=== PATIENT | male | born 1960 | race Caucasian/White ===

== ENCOUNTER 2017-03-30 12:46 | Emergency (ER) | payer OTHER, MEDICAID ==
[~2017-03-30] VITALS: Ht 188 cm; Wt 148.0 kg
[2017-03-30 12:51] VITALS: BP 176/98; PULSE 93; RESP 16; TEMP 98; O2SAT 97
[2017-03-30] MEDS ORDERED: CYCL10TA PO (13:08)
[2017-03-30] MEDS ORDERED: KETOROLAC TROMETHAMINE 60 MG/2 ML (IM) VIAL IM ONE (13:30)
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
[2017-03-30 14:43] VITALS: RESP 16
[2017-03-30] MEDS ORDERED: oxyCODONE/ACETAMINOPHEN 10 MG/325 MG TAB PO ONE (15:00)
[2017-03-30] MEDS ORDERED: IBUP1TAB7 PO (15:00)
[2017-03-30] MEDS ORDERED: OXYC1TAB36 PO (15:00)
== END 2017-03-30 15:19 | disposition home or self-care (01) ==
LOC: PHEFT 12:46
DX: S22.42XA Multiple fractures of ribs, left side, initial encounter for closed fracture (principal); S76.302A Unspecified injury of muscle, fascia and tendon of the posterior muscle group at thigh level, left thigh, initial encounter; V89.2XXA Person injured in unspecified motor-vehicle accident, traffic, initial encounter
CPT/HCPCS: 71101; 94150; 96372; 99285; J1885

== ENCOUNTER 2017-05-07 15:45 | Emergency (ER) | payer MEDICAID ==
[~2017-05-07] VITALS: Ht 188 cm; Wt 148.0 kg
[~2017-05-07 15:45] MED LIST: CYCL10TA PO; IBUP1TAB7 PO; OXYC1TAB36 PO
[2017-05-07 15:49] VITALS: BP 172/97; PULSE 94; RESP 16; TEMP 98.3; O2SAT 96
[2017-05-07] MEDS ORDERED: DIAZ10TA PO (16:58)
[2017-05-07] MEDS ORDERED: LEVO150T7 PO (16:58)
[2017-05-07] MEDS ORDERED: PRIL20TA2 PO (16:58)
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
== END 2017-05-07 18:23 | disposition home or self-care (01) ==
LOC: PHEFT 15:45
DX: S89.92XD Unspecified injury of left lower leg, subsequent encounter (principal); M25.462 Effusion, left knee; J44.9 Chronic obstructive pulmonary disease, unspecified; F17.210 Nicotine dependence, cigarettes, uncomplicated; V29.9XXD Motorcycle rider (driver) (passenger) injured in unspecified traffic accident, subsequent encounter
CPT/HCPCS: 73564; 99283

== ENCOUNTER 2017-06-02 18:05 | Emergency (ER) | payer MEDICAID ==
[~2017-06-02] VITALS: Ht 188 cm; Wt 160.0 kg
[~2017-06-02 18:05] MED LIST changes: -CYCL10TA PO; +DIAZ10TA PO; -IBUP1TAB7 PO; +LEVO150T7 PO; +PRIL20TA2 PO
[2017-06-02 18:09] VITALS: BP 146/78; PULSE 85; RESP 20; TEMP 98.6; O2SAT 96
[2017-06-02] MEDS ORDERED: SODIUM CHLORIDE 0.9% FLUSH 10 ML FLUSH IVF PRN (20:15)
[2017-06-02 20:30] VITALS: BP 148/88; PULSE 88; RESP 18; TEMP 98.7; O2SAT 97
[2017-06-02 20:34] VITALS: O2SAT 97
[2017-06-02 20:35] LABS: AUTOMATED NEUTROPHIL # 3.4 TH/MM3 (1.8-7.7); BASOPHIL # 0.1 TH/MM3 (0-0.2); BASOPHIL % 1.1 % (0.0-2.0); EOSINOPHIL # 0.3 TH/MM3 (0-0.4); EOSINOPHIL % 4.1 % (0.0-4.0); HEMATOCRIT 42.9 % (39.0-51.0); LYMPH % 39.8 % (9.0-44.0); LYMPHOCYTE # 2.8 TH/MM3 (1.0-4.8); MEAN CELL VOLUME 91.7 FL (80.0-100.0); MEAN CORPUSCULAR HGB CONC 32.7 % (32.0-36.0); MEAN PLATELET VOLUME 7.9 FL (7.0-11.0); MONO % 5.7 % (0.0-8.0); MONOCYTE # 0.4 TH/MM3 (0-0.9); NEUT % 49.3 % (16.0-70.0); PLATELET COUNT 242 TH/MM3 (150-450); RED BLOOD COUNT 4.67 MIL/MM3 (4.50-5.90); RED CELL DISTRIBUTION WIDTH 14.6 % (11.6-17.2)
[2017-06-02 20:42] LABS: CHLORIDE 102 MEQ/L (98-107); SODIUM (NA) 138 MEQ/L (136-145)
[2017-06-02 20:45] LABS: CALCIUM 8.5 MG/DL (8.5-10.1)
[2017-06-02 20:46] LABS: ALBUMIN 3.4 GM/DL (3.4-5.0); BICARBONATE 30.7 MEQ/L (21.0-32.0); BLOOD UREA NITROGEN 11 MG/DL (7-18); GLUCOSE,RANDOM 81 MG/DL (74-106)
--- NOTE | 2017-06-02 20:46 | RADRPT ---
EXAM DATE/TIME: 06/02/2017 20:24 [facility] COMPARISON: No previous studies available for comparison. INDICATIONS : Open wound to left great toe. Patient is diabetic. MEDICAL HISTORY : Diabetes mellitus type II. SURGICAL HISTORY : None. ENCOUNTER: Initial ACUITY: 1 week PAIN SCORE: 6/10 LOCATION: Left great toe. FINDINGS: Three view examination of the left foot demonstrates no dislocation or fracture. Soft tissue defect a nd swelling involving the great toe. No cortical destruction or lucency. The tarsal bones appear int act. The interphalangeal and metatarsophalangeal joints are intact. The calcaneus is intact. Bony mineralization is normal. CONCLUSION: 1. Ulceration involving the great toe. No radiographic evidence to suggest osteomyelitis. Reuben Huang Jr., MD on June 02, 2017 at 20:42 Board Certified Radiologist. This report was verified electronically.
[2017-06-02 20:49] LABS: ALT (GPT) 36 U/L (12-78); AST (GOT) 37 U/L (15-37); GLOMERULAR FILTRATION RATE 88 ML/MIN (>89)
[2017-06-02 20:51] LABS: TOTAL BILIRUBIN ADULT 0.3 MG/DL (0.2-1.0)
[2017-06-02 20:52] LABS: ALKALINE PHOSPHATASE 85 U/L (45-117)
[2017-06-02 21:30] VITALS: BP 145/79; PULSE 84; RESP 18; TEMP 98.5; O2SAT 99
[2017-06-02] MEDS ORDERED: oxyCODONE/ACETAMINOPHEN 5 MG/325 MG TAB PO ONE (22:15)
[2017-06-02] MEDS ORDERED: BACT800T5 PO (22:28)
--- NOTE | 2017-06-02 22:28 | PD ---
HPI Chief Complaint: Skin Problem Time Seen by Provider: 19:54 Travel History International Travel<30 days: No Contact w/Intl Traveler<30days: No Traveled to known affect area: No History of Present Illness HPI Patient is a 56-year-old male with a history of diabetes currently diet- controlled presents emergency department for evaluation of left great toe infection. He states it first noticed about a week ago is been gradually worsening, he's noticed a foul order from the wound, he is also noticed some foot swelling it's been progressive over the past week. No fevers no nausea no vomiting otherwise feels well. States he has a history of neuropathy, his symptoms are moderate, gradually worsening, context as above, associated signs symptoms as above. PFSH Past Medical History Hx Anticoagulant Therapy: No Anxiety: Yes Cardiovascular Problems: Yes (ANGINA) Chest Pain: Yes COPD: Yes Diabetes: Yes (TYPE 2 ) Patient Takes Glucophage: No GERD: Yes Thyroid Disease: Yes Tetanus Vaccination: < 5 Years Influenza Vaccination: No Past Surgical History Abdominal Surgery: Yes (umbilical hernia) Appendectomy: Yes Social History Alcohol Use: Yes (rare) Tobacco Use: Yes (1 ppd) Substance Use: Yes (OCC. MARIJUANA) Allergies-Medications (Allergen,Severity, Reaction): Uncoded Allergies: STEROIDS (Allergy, Severe, 03/30/17) Reported Meds & Prescriptions Reported Meds & Active Scripts Active Bactrim DS (Sulfamethoxazole-Trimethoprim) 800-160 Mg Tab 1 Tab PO BID 10 Days Oxycodone-Acetaminophen 10-325 mg Tab 1 Tab PO Q6H PRN Reported Diazepam 10 Mg Tab 10 Mg PO BID PRN Levothyroxine (Levothyroxine Sodium) 150 Mcg Tab 150 Mcg PO DAILY Prilosec (Omeprazole Magnesium) 20 Mg Tab Unknown Dose PO DIRECTED Review of Systems Except as stated in HPI: all other systems reviewed are Neg Physical Exam Narrative GENERAL: Well-developed, morbidly obese patient in no obvious distress, quite pleasant. SKIN: Focused skin assessment warm/dry. HEAD: Atraumatic. Normocephalic. EYES: Pupils equal and round. No scleral icterus. No injection or drainage. ENT: No nasal bleeding or discharge. Mucous membranes pink and moist. NECK: Trachea midline. No JVD. CARDIOVASCULAR: Regular rate and rhythm. No murmur appreciated. RESPIRATORY: No accessory muscle use. Clear to auscultation. Breath sounds equal bilaterally. GASTROINTESTINAL: Abdomen soft, non-tender, nondistended. Hepatic and splenic margins not palpable. MUSCULOSKELETAL: No obvious deformities. No clubbing. No cyanosis. No edema. There is ulcer without discharge some foul smell and a large blister that has eroded the plantar surface of his left great toe. There is also some edema and swelling of the foot, is euthermic to touch compared to his other foot. Cap refill is brisk. NEUROLOGICAL: Awake and alert. No obvious cranial nerve deficits. Motor grossly within normal limits. Normal speech. PSYCHIATRIC: Appropriate mood and affect; insight and judgment normal. Data Data Last Documented VS Vital Signs Date Time Temp Pulse Resp B/P (MAP) Pulse Ox O2 Delivery O2 Flow Rate FiO2 06/02/17 22:49 06/02/17 21:30 98.5 84 18 99 Room Air Orders Orders Bedside Glucose [id number].[email or web address] (06/02/17 20:06) Complete Blood Count With Diff (06/02/17 20:15) Comprehensive Metabolic Panel (06/02/17 20:15) Westergren Sedimentation Rate (06/02/17 20:15) C-Reactive Protein (Crp) (06/02/17 20:15) Ecg Monitoring (06/02/17 20:15) Iv Access Insert/Monitor (06/02/17 20:15) Oximetry (06/02/17 20:15) Sodium Chloride 0.9% Flush (Ns Flush) (06/02/17 20:15) Foot, Complete ([id number]) (06/02/17 ) Oxycodone-Acetamin 5-325 Mg (Percocet (06/02/17 22:15) Labs Laboratory Tests Test 06/02/17 20:23 White Blood Count 7.0 TH/MM3 Red Blood Count 4.67 MIL/MM3 Hemoglobin 14.0 GM/DL Hematocrit 42.9 % Mean Corpuscular Volume 91.7 FL Mean Corpuscular Hemoglobin 30.0 PG Mean Corpuscular Hemoglobin Concent 32.7 % Red Cell Distribution Width 14.6 % Platelet Count 242 TH/MM3 Mean Platelet Volume 7.9 FL Neutrophils (%) (Auto) 49.3 % Lymphocytes (%) (Auto) 39.8 % Monocytes (%) (Auto) 5.7 % Eosinophils (%) (Auto) 4.1 % Basophils (%) (Auto) 1.1 % Neutrophils # (Auto) 3.4 TH/MM3 Lymphocytes # (Auto) 2.8 TH/MM3 Monocytes # (Auto) 0.4 TH/MM3 Eosinophils # (Auto) 0.3 TH/MM3 Basophils # (Auto) 0.1 TH/MM3 CBC Comment DIFF FINAL Differential Comment Erythrocyte Sedimentation Rate 18 mm/hr Blood Urea Nitrogen 11 MG/DL Creatinine 0.90 MG/DL Random Glucose 81 MG/DL Total Protein 8.0 GM/DL Albumin 3.4 GM/DL Calcium Level 8.5 MG/DL Alkaline Phosphatase 85 U/L Aspartate Amino Transf (AST/SGOT) 37 U/L Alanine Aminotransferase (ALT/SGPT) 36 U/L Total Bilirubin 0.3 MG/DL Sodium Level 138 MEQ/L Potassium Level 4.2 MEQ/L Chloride Level 102 MEQ/L Carbon Dioxide Level 30.7 MEQ/L Anion Gap 5 MEQ/L Estimat Glomerular Filtration Rate 88 ML/MIN C-Reactive Protein 0.79 MG/DL MDM Medical Decision Making Medical Screen Exam Complete: Yes Emergency Medical Condition: Yes Differential Diagnosis Cellulitis, osteomyelitis is possible, sepsis possible but unlikely. Narrative Course Patient roomed in emergency department, while awaiting results of ESR and CRP the patient states he would like to go home and be started on antibiotics. I discussed with him the possibility of osteomyelitis and if it is osteo-myelitis he could become sick to the point of needing hospitalization or even intubation could theoretically result in or disability. Also discussed with him more likely scenario that he may develop infection to the point where he may need amputation of his toe foot or leg. He verbalized understanding and agreement still would like to be started on antibiotics and discharge. He was referred to wound care clinic as well as podiatry. Will be started on antibiotics. Discussed he is welcome to return to the emergency department anytime for further workup. He did sign formal AMA paper, he verbalized understanding and agreement to the risks as discussed above and therefore can make his own decision regarding leaving AGAINST MEDICAL ADVICE. Diagnosis Primary Impression: Toe infection Referrals: Chava Chapman DPM Additional Instructions: Call your regular physician or the [facility] tomorrow for an appointment. Med/Other Pt SpecificInfo: Prescription(s) given Scripts Sulfamethoxazole-Trimethoprim (Bactrim DS) 800-160 Mg Tab 1 TAB PO BID for Infection for 10 Days, #20 TAB 0 Refills Prov: Juan Francisco Jackson MD 06/02/17 Disposition: 07 AGAINST MEDICAL ADVICE Condition: Stable Juan Francisco Jackson MD Jun 02, 2017 22:28
[2017-06-02 22:41] LABS: C-REACTIVE PROTEIN 0.79 MG/DL (0.00-0.30)
== END 2017-06-02 22:45 | disposition left against medical advice (07) ==
LOC: PHED 18:05
DX: L08.9 Local infection of the skin and subcutaneous tissue, unspecified (principal); J44.9 Chronic obstructive pulmonary disease, unspecified; E11.9 Type 2 diabetes mellitus without complications; F41.9 Anxiety disorder, unspecified; K21.9 Gastro-esophageal reflux disease without esophagitis; F17.210 Nicotine dependence, cigarettes, uncomplicated; Z79.899 Other long term (current) drug therapy
CPT/HCPCS: 73630; 80053; 85025; 85652; 86140; 99284